=== PATIENT | male | born 1965 ===

== ENCOUNTER → 2021-04-30 11:35 | Outpatient (CLI) | payer BC, SELFPAY ==
--- NOTE | ~2021-04-30 | XR_ITS ---
EXAMINATION: XR shoulder RT min 2V DATE: 04/30/2021 11:55 INDICATION: Acute onset right shoulder pain TECHNIQUE: AP internally and externally rotated, AP oblique externally rotated and axillary views of the right shoulder were obtained. COMPARISON: None FINDINGS: Normal alignment. No fracture. Glenohumeral joint is normal. Acromioclavicular joint is normal. Soft tissues are unremarkable. Right lung is clear. IMPRESSION: Negative right shoulder radiographs. Reviewed, dictated and finalized at location B. CHECKER
== END ==
PROVIDERS: PCP Nurse Practitioner Family; Visit Provider Nurse Practitioner Family
DX: M25.511 Pain in right shoulder (principal)
CPT/HCPCS: 73030

== ENCOUNTER → 2021-06-19 08:01 | Outpatient (CLI) | payer BC, SELFPAY ==
--- NOTE | ~2021-06-19 | MR_ITS ---
EXAMINATION: MR shoulder RT wo con DATE: 06/19/2021 08:59 INDICATION: Chronic right shoulder pain. TECHNIQUE: Magnetic resonance imaging (MRI) of the right shoulder was performed without intravenous c ontrast. Sequences included axial PD-weighted FS FSE, coronal oblique PD-weighted FS FSE and T2-weigh kiley FS FSE, and sagittal oblique T2-weighted FS FSE and T1-weighted FSE. COMPARISON: Right shoulder radiographs 04/30/2021 FINDINGS: Coracoacromial arch: The acromion undersurface is curved in morphology (type II). There is severe acromioclavicular joint osteoarthritis with prominent subchondral edema-like marrow signal intensity in acromion. There is mi ld subacromial/subdeltoid bursitis. Rotator cuff: There is mild supraspinatus and infraspinatus tendinopathy. Teres minor tendon is normal. There is mi ld subscapularis tendinopathy. No tear. There is no asymmetric fatty atrophy of the rotator cuff musc le bellies. Biceps tendon and glenoid labrum: Biceps tendon is in bicipital groove. Intra-articular biceps tendon is normal. The glenoid labrum is normal. Fluid: There is no glenohumeral joint effusion. Bones/cartilage: Glenoid cartilage is normal. Humeral head cartilage is normal. IMPRESSION: 1. Severe acromioclavicular joint osteoarthritis. 2. Mild subacromial/subdeltoid bursitis. Reviewed, dictated and finalized at location A. DESIGN ENGINEER
== END ==
PROVIDERS: Visit Provider Nurse Practitioner Family
DX: M19.011 Primary osteoarthritis, right shoulder (principal); M75.51 Bursitis of right shoulder
CPT/HCPCS: 73221